=== PATIENT | female | born 1950 | race Hispanic/Latino ===

== ENCOUNTER 2017-06-08 08:52 | Outpatient (CLI) | payer MEDICARE ==
--- NOTE | 2017-06-08 09:51 | XRay Report ---
Right shoulder: Pain. There is a bony proliferation involving the inferior margin of the humeral head. In addition there is an accumulation of small calcifications just below the joint space. The articular margins however are smooth. The joint spaces preserved. The findings are not otherwise remarkable. Impression: 1. Anterior articular humerus spurring. 2. Possible loose bodies within the inferior bursa.
== END 2017-06-08 08:53 | disposition home or self-care (01) ==
LOC: SPVIMAG 08:52
PROVIDERS: ATTEND Orthopaedic Surgery Sports Medicine
DX: M25.811 Other specified joint disorders, right shoulder (principal)